=== PATIENT | female | born 1990 | race Caucasian/White ===

== ENCOUNTER 2019-05-07 06:06 | Day surgery (SDC) | payer OTHER ==
[2019-04-30 12:44] VITALS: BMI 25.8
[2019-05-07] MEDS ORDERED: LIDOCAINE 1%/EPI 1:100000 (20 ML MULTI DOSE VIAL) ONE ×2 (07:14→10:17)
[2019-05-07] MEDS ORDERED: SUCCINYLCHOLINE CHLORIDE 200 MG/10 ML SYRINGE ONE (07:34)
[2019-05-07] MEDS ORDERED: ROCURONIUM BROMIDE 50 MG/5 ML SYRINGE ONE (07:34)
[2019-05-07] MEDS ORDERED: MIDAZOLAM HCL 2 MG/2 ML SINGLE DOSE VIAL ONE (07:34)
[2019-05-07] MEDS ORDERED: fentaNYL CITRATE 250 MCG/5 ML VIAL ONE ×2 (07:34→10:23)
[2019-05-07] MEDS ORDERED: PROPOFOL 20 ML ONE ×5 (07:34)
[2019-05-07] MEDS ORDERED: OXYMETAZOLINE 0.05% NASAL SOLUTION 15 ML BOTTLE NS ONE (07:57)
[2019-05-07] MEDS ORDERED: LIDOCAINE 1%/EPI 1:100000 (50 ML MULTI DOSE VIAL) NR ONE ×2 (08:38→12:00)
[2019-05-07] MEDS ORDERED: DEXAMETHASONE SOD PHOSPHATE 4 MG/1 ML VIAL ONE (08:58)
[2019-05-07] MEDS ORDERED: ONDANSETRON 4 MG/2 ML VIAL ONE ×2 (08:58→13:46)
[2019-05-07] MEDS ORDERED: LIDOCAINE HCL/PF 2% SDV 5ML VIAL ONE (08:58)
[2019-05-07] MEDS ORDERED: ceFAZolin SODIUM 1 GM VIAL ONE ×2 (08:58→13:00)
[2019-05-07] MEDS ORDERED: LIDOCAINE HCL 2% JELLY (5 ML/TUBE) ONE (08:58)
[2019-05-07] MEDS ORDERED: BACITRACIN 15 GM TUBE TOPICAL OINTMENT ONE (09:12)
[2019-05-07] MEDS ORDERED: GLYCOPYRROLATE 0.2 MG/1 ML VIAL ONE (12:53)
[2019-05-07] MEDS ORDERED: NEOSTIGMINE METHYLSULFATE 0.5 MG/ML - 10 ML MDV ONE (12:53)
[2019-05-07] MEDS ORDERED: BENZOIN/ALOE VERA/STORAX/TOLU 58 ML BOTTLE ONE (13:16)
[2019-05-07] MEDS ORDERED: ONDANSETRON 4 MG/2 ML VIAL IVPUSH PRN (13:42)
[2019-05-07] MEDS ORDERED: oxyCODONE HCL 5 MG TABLET PO PRN ×4 (13:42→13:56)
[2019-05-07] MEDS ORDERED: PROMETHAZINE HCL 25 MG/1 ML VIAL IVPB PRN (13:42)
[2019-05-07] MEDS ORDERED: ONDANSETRON 4 MG/2 ML VIAL IVPB PRN (13:56)
[2019-05-07] MEDS ORDERED: LACTATED RINGERS SOLUTION 1,000 ML IV SCH (14:00)
--- NOTE | 2019-05-07 14:01 | OP ---
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
[2019-05-07 14:48] VITALS: TEMP 97.9
[2019-05-07] MEDS ORDERED: ACETAMINOPHEN 325 MG TABLET (FP) ONE (15:04)
[2019-05-07 16:29] VITALS: BP 130/72; PULSE 69
--- NOTE | 2019-05-07 22:36 | OP ---
DATE OF OPERATION: 05/07/2019 TITLE OF PROCEDURE: Nasal septoplasty with bilateral nasal vestibuloplasty using collision mechanic grafts and anterior septal extension grafts and nasal re-contouring. ATTENDING SURGEON: Rosendo An MD PREOPERATIVE DIAGNOSIS: Nasal and nasal septal deformity. ANESTHESIA: General endotracheal. ANESTHESIOLOGIST: LEO Paredes PROCEDURE: Patient is seen in the holding area, and all risks, benefits, and alternatives as well as limitations to the operation are thoroughly discussed, understood, and agreed to proceed. Patient is aware of the transcolumellar incision as well as the endonasal incisions. She is given appropriate antibiotics. CHARLIE hose and sequential compression stockings are applied. She is brought to the operating room, placed in supine position. Position is carefully performed by Anesthesia and nursing teams. I was not present for this portion. After anesthesia is given, a Corley catheter is placed, removed at the end of the procedure. The nose is prepared with injection of 1% lidocaine with 1:100,000 epinephrine to the septum as well as the subcutaneous tissue on the nose. On the subcutaneous tissue on the nose, a total of 6 mL is used; on the septum, a total of 10 mL is used. A throat pack is placed, removed at the end of the procedure. Afrin-soaked cottonoids are placed in each nostril while the remainder of the prep is performed. The patient is then prepped and draped in standard surgical fashion. Eyes are protected with lubrication and tape. After prepping and draping, a timeout is called. Patient, procedure, sites, and sides are verified. At this point, transcolumellar incision is made, connected to bilateral rimming incisions which are then dissected over the lower lateral cartilage domes. The cottonoids are removed from the nose. The dissection is then continued over the dorsum of the nose. At a level of the bony dorsum, the dissection is transitioned to a subperiosteal plane using a Arthur elevator. The anterior septal angle is then identified, and a submucoperichondrial plane is then identified to expose the entirety of the cartilaginous septum. A large dorsal hump on the septum is removed with angled scissors. After this has been removed, the septoplasty is able to be performed with a Nayely swivel knife, leaving a 1-cm strut on each of the caudal and dorsal aspects of the residual septum. The bony dorsum is then rasped to meet the height of the cartilaginous dorsum, leaving a large open-roof deformity. Bilateral low-to-low osteotomies were then performed with internal pyriform aperture incisions. This is done with a 4-mm single-guarded straight osteotome. The nasal bones are then infractured bilaterally, closing the open roof. Fine-tuning rasping is then performed. Upper lateral cartilages are partially trimmed in order to meet the height of the septum. The position of the tip is then measured. The resected septal cartilage is then used as grafts to collision mechanic grafts, and anterior septal extension grafts are then created and secured to the dorsal strut of the septum with a series of interrupted 5-0 mattressed Prolene suture. These are then connected to a columellar strut which extends beyond the existing projection of the tip. The 3 grafts are secured to one another to create a new position of the nasal tip. The nasal tip is then addressed with a cephalic trim until the appropriate contour is achieved, leaving a 7-mm width. The medial crura are secured to the anterior septal extension/columellar strut complex with 5-0 Prolene suture. Interdomal spanning sutures are then performed to create the width of the tip desired. A Quiroz-style crushed-cartilage tip graft is then placed. Bilateral butterfly-style infratip lobular grafts are likewise placed using the soft cartilage from the cephalic trim to protect from soft triangle notching. The skin is well vascularized. It is re-draped, yielding an excellent contour, shape, and length of the nose. The nose is irrigated, and the transcolumellar incision is closed with a series of interrupted 6-0 nylon suture. The endonasal incisions are closed with a series of interrupted 5-0 chromic gut suture, leaving the pyriform aperture incisions open for drainage. Internal nasal splints are secured across the membranous septum with a 4-0 Prolene suture, and a dorsal Cachorro splint is applied as well as a moustache dressing. Bacitracin is placed on the incisions. Patient is awoken from anesthesia. Throat pack is removed, having tolerated the procedure well, transferred to recovery without complication. Navneet [id number]
== END 2019-05-07 16:29 | disposition home or self-care (01) ==
LOC: FASU 06:06
PROVIDERS: ATTEND Plastic Surgery
PROC: 0CQ40ZZ Repair Buccal Mucosa, Open Approach (ICD-10-PCS; 2019-05-07)
PROC: 09RM07Z Replacement of Nasal Septum with Autologous Tissue Substitute, Open Approach (ICD-10-PCS; principal; 2019-05-07 09:02)
DX: J34.2 Deviated nasal septum (principal); J34.89 Other specified disorders of nose and nasal sinuses
CPT/HCPCS: 81025; 94760